=== PATIENT | female | born 1950 | race Caucasian/White ===

== ENCOUNTER → 2016-08-05 | Outpatient (CLI) | payer MEDICARE, OTHER ==
--- NOTE | ~2016-08-05 | MY11 ---
[facility] A Service of [facility] RADIOLOGY TEXT RESULTS PATIENT: HANNAH FLANNERY LOCATION: [facility] : 52 UNIT #: [id number] AGE: [address]: Kasi Grigsby MD SEX: F ORDER DR: [id number] [address] [address] [id number] O MR#: [id number] #: [id number] NAME: HANNAH FLANNERY : 1950 SEX: F STUDY DATE/TIME: 08/05/2016 11:33 UNIT: [facility] ROOM: STUDY DESCRIPTION: MY Mammogram Screening Dig Shan Attending Physician: Kasi Grigsby M.D. Referring Physician: Kasi Grigsby M.D. Ordering Physician: Kasi Grigsby M.D. Primary Care Physician: Kasi Grigsby M.D. MEDICAL IMAGING REPORT This report is preliminary unless electronic signature is present. EXAM Digital screening mammogram, 08/05/2016 HISTORY 66-year-old woman no risk elevation. Annual screening. COMPARISON Mammograms date to 02/22/2007 with most recent 01/12/2012. FINDINGS Digital imaging of each breast was completed utilizing screening protocol. Review includes FDA-approved CAD device. Breast parenchyma is fatty replaced bilaterally. Occasional benign calcification noted in each breast. I see no interval occurring mass. There are no suspicious microcalcifications and no architectural deformity. IMPRESSION Negative mammogram. Annual screening recommended. Patients over the age of 40 are entered into a reminder system with target due date for the next mammogram. A result letter will also be sent to the patient. BIRADS: 1 Negative Dictated by... Deondre Hendrix M.D. THIS IS AN ELECTRONICALLY VERIFIED REPORT Deondre Hendrix M.D. at 08/05/2016 12:44 PM Alexi TD: 08/05/2016 12:03 [facility] A Service [facility] RADIOLOGY TEXT RESULTS PATIENT: HANNAH FLANNERY LOCATION: [facility] #: [id number] : 52 UNIT #: [id number] AGE: [address]: Kasi Grigsby MD SEX: F ORDER DR: SILVA #: [id number] MEDICAL IMAGING REPORT Page 1 of 1
== END | disposition home or self-care (01) ==
LOC: SMAM 10:45
DX: Z12.31 Encounter for screening mammogram for malignant neoplasm of breast (principal)
CPT/HCPCS: G0202